=== PATIENT | male | born 1935 | race Caucasian/White ===

== ENCOUNTER 2017-11-20 10:30 | Observation (INO) | payer MEDICARE, OTHER ==
[~2017-11-20 10:30] MED LIST: CEFAZOLIN 1 GM INJ; INDIGOTINDISULFONATE 0.8% 5 ML INJ ZFS; LIDOCAINE 2% (SDV) 5 ML INJ; ROCURONIUM 50 MG INJ
[2017-11-20] MEDS ORDERED: CEFTRIAXONE 1 GM/NS 50 ML IVPB (11:00)
[2017-11-20] MEDS ORDERED: PROPOFOL 20 ML (12:27)
[2017-11-20] MEDS ORDERED: FENTAnyl 50 MCG/ML VIAL ×2 (12:32→15:11)
[2017-11-20] MEDS ORDERED: FUROSEMIDE 20 MG INJ (14:08)
[2017-11-20] MEDS: IOHEXOL 300MG/ML 30 ML BTL (14:50)
[2017-11-20] MEDS ORDERED: SUGAMMADEX SODIUM 200 MG/2 ML VIAL IV (15:41)
[2017-11-20] MEDS ORDERED: KETOROLAC 30 MG INJ IV (16:00)
[2017-11-20] MEDS ORDERED: MEPERIDINE 25 MG INJ IV (16:00)
[2017-11-20] MEDS ORDERED: FENTAnyl 50 MCG/ML VIAL IV ×3 (16:00)
[2017-11-20] MEDS ORDERED: EPHEDrine SULFATE 50 MG/5 ML SYG IV (16:00)
[2017-11-20] MEDS ORDERED: ONDANSETRON 4 MG INJ IV ×3 (16:00→22:30)
[2017-11-20] MEDS ORDERED: MIDAZOLAM 1 MG/ML 2 ML INJ IV (16:00)
[2017-11-20] MEDS ORDERED: DIPHENHYDRAMINE 50 MG INJ IV (16:00)
[2017-11-20] MEDS ORDERED: METOCLOPRAMIDE 10 MG INJ IV (16:00)
[2017-11-20] MEDS ORDERED: HYDROmorphONE 1 MG/5 ML IV SYRINGE IV ×3 (16:00)
[2017-11-20] MEDS ORDERED: ALBUTEROL 0.083% (NEB) 2.5 MG/3 ML AMP HHN (16:00)
[2017-11-20] MEDS ORDERED: LABETALOL HCL 20MG INJ IV (16:00)
[2017-11-20] MEDS: hydrALAzine 20 MG INJ IV ×2 (16:15→16:36)
[2017-11-20] MEDS: DEXTROSE 5%-0.45% NACL 1,000 ML IV (18:54)
[2017-11-20] MEDS ORDERED: GLUCOSE GEL 15 GRAM TUBE PO ×2 (21:00)
[2017-11-20] MEDS ORDERED: GLUCAGON 1 MG INJ IM (21:00)
[2017-11-20] MEDS ORDERED: GLUCOSE GEL 15 GRAM TUBE BUCCAL (21:00)
[2017-11-20] MEDS ORDERED: DEXTROSE 50% 50 ML SYRINGE IV ×2 (21:00)
[2017-11-20] MEDS: ATORVASTATIN 20 MG TAB PO (21:54)
[2017-11-20] MEDS: INSULIN GLARGINE [LANtus] 3 ML PEN SC (21:59)
[2017-11-20] MEDS: INSULIN ASPART [NOVOLOG] 3 ML PEN SC (22:00)
[2017-11-21] MEDS: ACCU-CHEK XX (02:06)
[2017-11-21] MEDS: PANTOPRAZOLE (EC) 40 MG TAB PO (05:20)
[2017-11-21 06:10] LABS: ADD MAN DIFF? NO
[2017-11-21 06:17] LABS: WHITE BLOOD COUNT 10.2 10^3/ul (4.8-10.8)
[2017-11-21 06:17] LABS: BASOPHILS % 0.3 % (0.0-2.0); EOSINOPHILS % 0.4 % (0.0-7.0); HEMATOCRIT 37.5 % (42.0-52.0); HEMOGLOBIN 12.4 g/dl (14.0-18.0); LYMPHOCYTES % 9.4 % (15.0-51.0); MEAN CORPUSCULAR HEMOGLOBIN 31.4 pg (29.0-33.0); MEAN CORPUSCULAR HGB CONC 33.1 g/dl (32.0-37.0); MEAN CORPUSCULAR VOLUME 94.9 fl (82.0-101.0); MEAN PLATELET VOLUME 10.5 fl (7.4-10.4); MONOCYTE # 0.4 10^3/ul (0.3-0.9); MONOCYTES % 3.8 % (0.0-11.0); NEUTROPHIL # 8.7 10^3/ul (1.6-7.5); NEUTROPHILS % 85.6 % (39.0-77.0); PLATELET COUNT 157 10^3/UL (140-415); RED BLOOD COUNT 3.95 10^6/ul (4.70-6.10); RED CELL DISTRIBUTION WIDTH 13.8 % (11.5-14.5)
[2017-11-21] MEDS: INSULIN ASPART [NOVOLOG] 3 ML PEN SC ×6 (08:14→17:30)
[2017-11-21 08:59] LABS: HEMOGLOBIN A1C 6.8 % (0-5.9)
[2017-11-21] MEDS: VALSARTAN 80 MG TAB PO (10:27)
[2017-11-21] MEDS: AMLODIPINE 5 MG TAB PO (10:27)
[2017-11-21 16:26] LABS: ANION GAP 11 (8-16); BLOOD UREA NITROGEN 24 mg/dl (7-20); CALCIUM 8.2 mg/dl (8.4-10.2); CARBON DIOXIDE 23 mmol/L (21-31); CHLORIDE 107 mmol/L (97-110); CREATININE 1.58 mg/dl (0.61-1.24); GLUCOSE 193 mg/dl (70-220); POTASSIUM 4.8 mmol/L (3.5-5.1); SODIUM 136 mmol/L (135-144)
== END 2017-11-21 19:00 | disposition home or self-care (01) ==
LOC: SDS 10:30 → REC 15:57 → MS2 17:25
PROVIDERS: Urology
DX: C67.5 Malignant neoplasm of bladder neck (principal); E11.9 Type 2 diabetes mellitus without complications; I10 Essential (primary) hypertension; I73.9 Peripheral vascular disease, unspecified
CPT/HCPCS: 52005; 74420; 80048; 82962; 83036; 85025; 88104; 88309; 99217

== ENCOUNTER 2017-11-26 17:40 | Inpatient (IN) | payer MEDICARE, OTHER ==
[2017-11-26 19:19] LABS: ADD MAN DIFF? NO
[2017-11-26 19:28] LABS: ABNORMAL IP MESSAGE 1; BASOPHILS % 0.2 % (0.0-2.0); EOSINOPHILS # 0.1 10^3/ul (0.0-0.5); HEMATOCRIT 35.4 % (42.0-52.0); HEMOGLOBIN 11.9 g/dl (14.0-18.0); LYMPHOCYTES # 0.6 10^3/ul (0.8-2.9); LYMPHOCYTES % 5.7 % (15.0-51.0); MEAN CORPUSCULAR HEMOGLOBIN 31.5 pg (29.0-33.0); MEAN CORPUSCULAR HGB CONC 33.6 g/dl (32.0-37.0); MEAN CORPUSCULAR VOLUME 93.7 fl (82.0-101.0); MEAN PLATELET VOLUME 10.3 fl (7.4-10.4); MONOCYTE # 0.4 10^3/ul (0.3-0.9); MONOCYTES % 4.1 % (0.0-11.0); NEUTROPHILS % 88.6 % (39.0-77.0); PLATELET COUNT 179 10^3/UL (140-415); POSITIVE DIFF @See below; RED BLOOD COUNT 3.78 10^6/ul (4.70-6.10); RED CELL DISTRIBUTION WIDTH 13.4 % (11.5-14.5)
[2017-11-26 19:28] LABS: WHITE BLOOD COUNT 10.1 10^3/ul (4.8-10.8)
[2017-11-26] MEDS: ACETAMINOPHEN 325 MG TAB PO (19:35)
[2017-11-26] MEDS: IBUPROFEN 800 MG TAB PO (19:35)
[2017-11-26] MEDS: SODIUM CHLORIDE 0.9% 1L BAG IV* (19:36)
[2017-11-26 19:40] LABS: LACTIC ACID 1.7 mmol/L (0.5-2.0)
[2017-11-26 19:42] LABS: ALANINE AMINOTRANSFERASE 23 IU/L (13-69); ALBUMIN 3.6 g/dl (3.3-4.9); ALKALINE PHOSPHATASE 63 IU/L (42-121); AMYLASE 80 U/L (11-123); ANION GAP 13 (8-16); ASPARTATE AMINO TRANSFERASE 15 IU/L (15-46); BILIRUBIN,INDIRECT 0.4 mg/dl (0-1.1); BILIRUBIN,TOTAL 0.4 mg/dl (0.2-1.3); BLOOD UREA NITROGEN 19 mg/dl (7-20); CALCIUM 8.6 mg/dl (8.4-10.2); CARBON DIOXIDE 24 mmol/L (21-31); CHLORIDE 104 mmol/L (97-110); GLUCOSE 270 mg/dl (70-220); LIPASE 156 U/L (23-300); POTASSIUM 4.8 mmol/L (3.5-5.1); SODIUM 136 mmol/L (135-144); TOTAL PROTEIN 6.6 g/dl (6.1-8.1)
[2017-11-26 19:54] LABS: INR 1.01; PROTIME 13.4 Sec (11.9-14.9)
[2017-11-26 19:55] LABS: PARTIAL THROMBOPLASTIN TIME 33.2 Sec (25.0-35.0)
[2017-11-26 19:57] LABS: ADD UMIC YES; UR ASCORBIC ACID NEGATIVE (NEGATIVE); UR BACTERIA FEW /HPF (NONE SEEN); UR BILIRUBIN (Dip) NEGATIVE (NEGATIVE); UR BLOOD (Dip) 3+ mg/dL (NEGATIVE); UR CLARITY CLOUDY (CLEAR); UR COLOR YELLOW (YELLOW); UR GLUCOSE (Dip) 1+ mg/dL (NEGATIVE); UR KETONES (Dip) NEGATIVE (NEGATIVE); UR LEUKOCYTE ESTERASE (Dip) 3+ Leu/ul (NEGATIVE); UR NITRITE (Dip) NEGATIVE (NEGATIVE); UR RBC > 182 /HPF (0-5); UR SQUAMOUS EPITHELIAL CELL FEW /HPF (FEW); UR TOTAL PROTEIN (Dip) 2+ mg/dl (NEGATIVE); UR UROBILINOGEN (Dip) NEGATIVE (NEGATIVE); UR WBC > 182 /HPF (0-5)
[2017-11-26 20:10] LABS: TROPONIN-I 0.034 ng/ml (0.000-0.120)
[2017-11-26] MEDS: CEFEPIME 2GM/50 ML (PMX) 50 ML IVPB (20:28)
[2017-11-26] MEDS ORDERED: ACETAMINOPHEN 325 MG TAB PO ×2 (20:30→22:00)
[2017-11-26] MEDS ORDERED: ONDANSETRON 4 MG INJ IV ×2 (20:30→22:00)
[2017-11-26] MEDS: VANCOMYCIN 1 GM (PMX) 250 ML IVPB (21:07)
[2017-11-26] MEDS ORDERED: NACL 0.9% 3 ML SYG IV (22:00)
[2017-11-26] MEDS ORDERED: morphine 2 MG INJ IV (22:00)
[2017-11-26] MEDS ORDERED: VANCOMYCIN IV PER PHARMACY XX (22:00)
[2017-11-26] MEDS ORDERED: GLUCOSE GEL 15 GRAM TUBE BUCCAL (23:30)
[2017-11-26] MEDS ORDERED: GLUCOSE GEL 15 GRAM TUBE PO ×2 (23:30)
[2017-11-26] MEDS ORDERED: DEXTROSE 50% 50 ML SYRINGE IV ×2 (23:30)
[2017-11-26] MEDS ORDERED: GLUCAGON 1 MG INJ IM (23:30)
[2017-11-26 23:51] LABS: LACTIC ACID 1.9 mmol/L (0.5-2.0)
[2017-11-26] MEDS: SOD CHLORIDE 0.9% 1,000 ML IV (23:52)
[2017-11-26] MEDS: PIPER-TAZO 2.25 GM (PMX) 50 ML IVPB (23:52)
[2017-11-27] MEDS: SOD CHLORIDE 0.9% 500 ML IV (00:41)
[2017-11-27] MEDS: SOD CHLORIDE 0.9% 1,000 ML IV (01:43)
[2017-11-27] MEDS: ACCU-CHEK XX (02:17)
[2017-11-27] MEDS: PIPER-TAZO 2.25 GM (PMX) 50 ML IVPB ×3 (05:42→21:50)
[2017-11-27] MEDS: CLINDAMYCIN 600 MG/D5W (PMX) 50 ML IVPB ×4 (05:42→23:53)
[2017-11-27] MEDS: PANTOPRAZOLE (EC) 40 MG TAB PO (05:42)
[2017-11-27] MEDS ORDERED: ONDANSETRON 4 MG INJ IV (07:00)
[2017-11-27] MEDS ORDERED: HYDROCODONE/APAP (5/325) TAB PO (07:00)
[2017-11-27 07:19] LABS: ADD MAN DIFF? NO
[2017-11-27 07:29] LABS: WHITE BLOOD COUNT 10.4 10^3/ul (4.8-10.8)
[2017-11-27 07:29] LABS: BASOPHILS % 0.4 % (0.0-2.0); EOSINOPHILS # 0.2 10^3/ul (0.0-0.5); EOSINOPHILS % 2.2 % (0.0-7.0); HEMOGLOBIN 11.7 g/dl (14.0-18.0); LYMPHOCYTES % 9.8 % (15.0-51.0); MEAN CORPUSCULAR HGB CONC 32.5 g/dl (32.0-37.0); MEAN CORPUSCULAR VOLUME 95.5 fl (82.0-101.0); MEAN PLATELET VOLUME 10.3 fl (7.4-10.4); MONOCYTE # 0.6 10^3/ul (0.3-0.9); MONOCYTES % 5.4 % (0.0-11.0); NEUTROPHIL # 8.5 10^3/ul (1.6-7.5); NEUTROPHILS % 81.9 % (39.0-77.0); PLATELET COUNT 163 10^3/UL (140-415); RED BLOOD COUNT 3.77 10^6/ul (4.70-6.10); RED CELL DISTRIBUTION WIDTH 13.7 % (11.5-14.5)
[2017-11-27] MEDS ORDERED: INSULIN ASPART [NOVOLOG] 3 ML PEN SC (07:55)
[2017-11-27] MEDS: INSULIN ASPART [NOVOLOG] 3 ML PEN SC ×4 (07:55→20:43)
[2017-11-27 07:58] LABS: ALANINE AMINOTRANSFERASE 27 IU/L (13-69); ALBUMIN 3.3 g/dl (3.3-4.9); ALBUMIN/GLOBULIN RATIO 1.17; ALKALINE PHOSPHATASE 48 IU/L (42-121); ANION GAP 15 (8-16); ASPARTATE AMINO TRANSFERASE 15 IU/L (15-46); BILIRUBIN,INDIRECT 0.8 mg/dl (0-1.1); BILIRUBIN,TOTAL 0.8 mg/dl (0.2-1.3); BLOOD UREA NITROGEN 18 mg/dl (7-20); CALCIUM 8.4 mg/dl (8.4-10.2); CARBON DIOXIDE 24 mmol/L (21-31); CHLORIDE 110 mmol/L (97-110); CREATININE 1.53 mg/dl (0.61-1.24); GLUCOSE 171 mg/dl (70-220); MAGNESIUM 2.1 mg/dl (1.7-2.5); POTASSIUM 4.5 mmol/L (3.5-5.1); SODIUM 144 mmol/L (135-144); TOTAL PROTEIN 6.1 g/dl (6.1-8.1)
[2017-11-27 08:14] LABS: HEMOGLOBIN A1C 6.9 % (0-5.9)
[2017-11-27] MEDS ORDERED: GLUCAGON 1 MG INJ IM (08:30)
[2017-11-27] MEDS ORDERED: GLUCOSE GEL 15 GRAM TUBE BUCCAL (08:30)
[2017-11-27] MEDS ORDERED: DEXTROSE 50% 50 ML SYRINGE IV ×2 (08:30)
[2017-11-27] MEDS ORDERED: GLUCOSE GEL 15 GRAM TUBE PO ×2 (08:30)
[2017-11-27] MEDS: FISH OIL 1,000 MG CAP PO ×2 (08:42→20:40)
[2017-11-27] MEDS: ASPIRIN (EC) 81 MG TAB PO (08:42)
[2017-11-27] MEDS: MULTIVITAMINS/MINERALS TAB PO (08:43)
[2017-11-27] MEDS: AMLODIPINE 5 MG TAB PO (08:43)
[2017-11-27] MEDS: CHOLECALCIFEROL 2,000 UNIT CAP PO (08:43)
[2017-11-27] MEDS ORDERED: UBIDECARENONE 100 MG PO (09:00)
[2017-11-27] MEDS: ATORVASTATIN 20 MG TAB PO (20:40)
[2017-11-27] MEDS: TAMSULOSIN (SR) 0.4 MG CAP PO (20:40)
[2017-11-27] MEDS ORDERED: VANCOMYCIN 1 GM 250 ML IVPB (21:00)
[2017-11-27] MEDS ORDERED: morphine LIQ (10 MG/5 ML) CUP PO (23:00)
[2017-11-28] MEDS: ACCU-CHEK XX (02:00)
[2017-11-28] MEDS: PIPER-TAZO 2.25 GM (PMX) 50 ML IVPB ×3 (05:34→22:37)
[2017-11-28] MEDS: CLINDAMYCIN 600 MG/D5W (PMX) 50 ML IVPB ×3 (05:34→17:41)
[2017-11-28] MEDS: PANTOPRAZOLE (EC) 40 MG TAB PO (05:34)
[2017-11-28 07:29] LABS: ANION GAP 16 (8-16); BLOOD UREA NITROGEN 16 mg/dl (7-20); CALCIUM 8.5 mg/dl (8.4-10.2); CARBON DIOXIDE 23 mmol/L (21-31); CHLORIDE 107 mmol/L (97-110); CREATININE 1.48 mg/dl (0.61-1.24); GLUCOSE 181 mg/dl (70-220); POTASSIUM 4.6 mmol/L (3.5-5.1); SODIUM 141 mmol/L (135-144)
[2017-11-28] MEDS: SOD CHLORIDE 0.9% 1,000 ML IV (07:46)
[2017-11-28] MEDS: CHOLECALCIFEROL 2,000 UNIT CAP PO (08:28)
[2017-11-28] MEDS: FISH OIL 1,000 MG CAP PO ×2 (08:28→21:10)
[2017-11-28] MEDS: MULTIVITAMINS/MINERALS TAB PO (08:28)
[2017-11-28] MEDS: AMLODIPINE 5 MG TAB PO (08:28)
[2017-11-28] MEDS: ASPIRIN (EC) 81 MG TAB PO (08:28)
[2017-11-28] MEDS: INSULIN ASPART [NOVOLOG] 3 ML PEN SC ×4 (08:34→21:13)
[2017-11-28 09:50] LABS: THYROID STIMULATING HORMONE 0.765 MIU/L (0.465-4.680)
[2017-11-28 19:03] LABS: TROPONIN-I 0.019 ng/ml (0.000-0.120)
[2017-11-28] MEDS ORDERED: METOPROLOL 25 MG TAB PO (21:00)
[2017-11-28] MEDS: METOPROLOL 25 MG TAB PO (21:10)
[2017-11-28] MEDS: ATORVASTATIN 20 MG TAB PO (21:10)
[2017-11-28] MEDS: TAMSULOSIN (SR) 0.4 MG CAP PO (21:10)
[2017-11-29] MEDS: CLINDAMYCIN 600 MG/D5W (PMX) 50 ML IVPB ×5 (00:31→22:30)
[2017-11-29 01:40] LABS: CREATINE KINASE 22 IU/L (23-200)
[2017-11-29 01:51] LABS: CK INDEX 1.2; CK-MB 0.26 ng/ml (0.0-2.4)
[2017-11-29] MEDS: ACCU-CHEK XX (02:00)
[2017-11-29] MEDS: PIPER-TAZO 2.25 GM (PMX) 50 ML IVPB ×3 (06:01→21:52)
[2017-11-29] MEDS: PANTOPRAZOLE (EC) 40 MG TAB PO (06:01)
[2017-11-29 06:41] LABS: ADD MAN DIFF? NO
[2017-11-29 06:45] LABS: BASOPHILS % 0.4 % (0.0-2.0); EOSINOPHILS # 0.3 10^3/ul (0.0-0.5); EOSINOPHILS % 3.1 % (0.0-7.0); HEMATOCRIT 33.7 % (42.0-52.0); LYMPHOCYTES # 1.1 10^3/ul (0.8-2.9); LYMPHOCYTES % 11.1 % (15.0-51.0); MEAN CORPUSCULAR HEMOGLOBIN 30.4 pg (29.0-33.0); MEAN CORPUSCULAR HGB CONC 32.6 g/dl (32.0-37.0); MEAN CORPUSCULAR VOLUME 93.1 fl (82.0-101.0); MEAN PLATELET VOLUME 10.9 fl (7.4-10.4); MONOCYTE # 0.5 10^3/ul (0.3-0.9); MONOCYTES % 4.9 % (0.0-11.0); NEUTROPHIL # 7.6 10^3/ul (1.6-7.5); NEUTROPHILS % 79.5 % (39.0-77.0); PLATELET COUNT 206 10^3/UL (140-415); RED BLOOD COUNT 3.62 10^6/ul (4.70-6.10); RED CELL DISTRIBUTION WIDTH 13.5 % (11.5-14.5)
[2017-11-29 06:45] LABS: WHITE BLOOD COUNT 9.6 10^3/ul (4.8-10.8)
[2017-11-29 07:35] LABS: ANION GAP 10 (8-16); BLOOD UREA NITROGEN 13 mg/dl (7-20); CALCIUM 8.6 mg/dl (8.4-10.2); CARBON DIOXIDE 25 mmol/L (21-31); CHLORIDE 110 mmol/L (97-110); CREATININE 1.55 mg/dl (0.61-1.24); GLUCOSE 160 mg/dl (70-220); PHOSPHORUS 3.9 mg/dl (2.5-4.9); POTASSIUM 4.4 mmol/L (3.5-5.1); SODIUM 141 mmol/L (135-144)
[2017-11-29] MEDS: FISH OIL 1,000 MG CAP PO ×2 (08:12→21:37)
[2017-11-29] MEDS: MULTIVITAMINS/MINERALS TAB PO (08:13)
[2017-11-29] MEDS: SOD CHLORIDE 0.9% 1,000 ML IV (08:13)
[2017-11-29] MEDS: ASPIRIN (EC) 81 MG TAB PO (08:13)
[2017-11-29] MEDS: AMLODIPINE 5 MG TAB PO (08:13)
[2017-11-29] MEDS: METOPROLOL 25 MG TAB PO ×2 (08:13→21:37)
[2017-11-29] MEDS: CHOLECALCIFEROL 2,000 UNIT CAP PO (08:13)
[2017-11-29] MEDS: INSULIN ASPART [NOVOLOG] 3 ML PEN SC ×4 (08:20→21:48)
[2017-11-29 08:31] LABS: CK-MB 0.24 ng/ml (0.0-2.4); TROPONIN-I 0.017 ng/ml (0.000-0.120)
[2017-11-29 08:55] LABS: CREATINE KINASE < 20 IU/L (23-200)
[2017-11-29] MEDS: POTASSIUM CHLORIDE (SR) 20 MEQ TAB PO (15:27)
[2017-11-29] MEDS: MAGNESIUM SULFATE 1 GM/D5W 100 ML IVPB (15:27)
[2017-11-29] MEDS: TAMSULOSIN (SR) 0.4 MG CAP PO (21:37)
[2017-11-29] MEDS: ATORVASTATIN 20 MG TAB PO (21:37)
[2017-11-30] MEDS: ACCU-CHEK XX (02:00)
[2017-11-30 06:29] LABS: WHITE BLOOD COUNT 7.5 10^3/ul (4.8-10.8)
[2017-11-30 06:29] LABS: ADD MAN DIFF? NO; BASOPHIL # 0.1 10^3/ul (0.0-0.1); BASOPHILS % 0.7 % (0.0-2.0); EOSINOPHILS # 0.4 10^3/ul (0.0-0.5); EOSINOPHILS % 4.8 % (0.0-7.0); HEMATOCRIT 33.8 % (42.0-52.0); LYMPHOCYTES # 0.9 10^3/ul (0.8-2.9); LYMPHOCYTES % 11.8 % (15.0-51.0); MEAN CORPUSCULAR HEMOGLOBIN 31.1 pg (29.0-33.0); MEAN CORPUSCULAR HGB CONC 32.5 g/dl (32.0-37.0); MEAN CORPUSCULAR VOLUME 95.5 fl (82.0-101.0); MEAN PLATELET VOLUME 10.8 fl (7.4-10.4); MONOCYTE # 0.4 10^3/ul (0.3-0.9); MONOCYTES % 5.4 % (0.0-11.0); NEUTROPHIL # 5.7 10^3/ul (1.6-7.5); NEUTROPHILS % 76.8 % (39.0-77.0); PLATELET COUNT 229 10^3/UL (140-415); RED BLOOD COUNT 3.54 10^6/ul (4.70-6.10); RED CELL DISTRIBUTION WIDTH 13.5 % (11.5-14.5)
[2017-11-30] MEDS: SOD CHLORIDE 0.9% 1,000 ML IV (06:32)
[2017-11-30] MEDS: PANTOPRAZOLE (EC) 40 MG TAB PO (06:32)
[2017-11-30] MEDS: PIPER-TAZO 2.25 GM (PMX) 50 ML IVPB ×2 (06:32→14:13)
[2017-11-30] MEDS: CLINDAMYCIN 600 MG/D5W (PMX) 50 ML IVPB ×2 (06:32→12:06)
[2017-11-30 06:47] LABS: ALANINE AMINOTRANSFERASE 30 IU/L (13-69); ALBUMIN 3.3 g/dl (3.3-4.9); ALBUMIN/GLOBULIN RATIO 1.06; ALKALINE PHOSPHATASE 43 IU/L (42-121); ANION GAP 15 (8-16); ASPARTATE AMINO TRANSFERASE 19 IU/L (15-46); BILIRUBIN,INDIRECT 0.4 mg/dl (0-1.1); BILIRUBIN,TOTAL 0.4 mg/dl (0.2-1.3); BLOOD UREA NITROGEN 13 mg/dl (7-20); CALCIUM 8.5 mg/dl (8.4-10.2); CARBON DIOXIDE 24 mmol/L (21-31); CHLORIDE 108 mmol/L (97-110); CREATININE 1.59 mg/dl (0.61-1.24); GLUCOSE 162 mg/dl (70-220); SODIUM 142 mmol/L (135-144); TOTAL PROTEIN 6.4 g/dl (6.1-8.1)
[2017-11-30 06:54] LABS: INR 1.06; PROTIME 13.9 Sec (11.9-14.9); PT RATIO 1.1
[2017-11-30 06:55] LABS: PARTIAL THROMBOPLASTIN TIME 34.7 Sec (25.0-35.0)
[2017-11-30] MEDS: INSULIN ASPART [NOVOLOG] 3 ML PEN SC ×2 (07:52→12:17)
[2017-11-30] MEDS: ASPIRIN (EC) 81 MG TAB PO (08:58)
[2017-11-30] MEDS: FISH OIL 1,000 MG CAP PO (08:58)
[2017-11-30] MEDS: CHOLECALCIFEROL 2,000 UNIT CAP PO (08:59)
[2017-11-30] MEDS: AMLODIPINE 5 MG TAB PO (08:59)
[2017-11-30] MEDS: MULTIVITAMINS/MINERALS TAB PO (08:59)
[2017-11-30] MEDS: METOPROLOL 25 MG TAB PO (08:59)
== END 2017-11-30 15:10 | disposition home or self-care (01) | DRG 862 ==
LOC: TEL 20:15 → E/R 17:40
DX: T81.4XXA Infection following a procedure, initial encounter (principal); A41.9 Sepsis, unspecified organism; N39.0 Urinary tract infection, site not specified; I47.2 Ventricular tachycardia; E11.22 Type 2 diabetes mellitus with diabetic chronic kidney disease; N28.1 Cyst of kidney, acquired; R31.9 Hematuria, unspecified; I73.9 Peripheral vascular disease, unspecified; E78.5 Hyperlipidemia, unspecified; R33.9 Retention of urine, unspecified; I12.9 Hypertensive chronic kidney disease with stage 1 through stage 4 chronic kidney disease, or unspecified chronic kidney disease; N18.9 Chronic kidney disease, unspecified; N20.0 Calculus of kidney; Y84.8 Other medical procedures as the cause of abnormal reaction of the patient, or of later complication, without mention of misadventure at the time of the procedure; Y92.89 Other specified places as the place of occurrence of the external cause; Z79.4 Long term (current) use of insulin; Z79.82 Long term (current) use of aspirin; Z87.442 Personal history of urinary calculi; Z87.891 Personal history of nicotine dependence; Z85.118 Personal history of other malignant neoplasm of bronchus and lung
CPT/HCPCS: 36415; 71045; 74176; 80048; 80053; 81001; 82150; 82550; 82553; 82962; 83036; 83605; 83690; 83735; 84100; 84443; 84484; 85025; 85610; 85730; 87040; 87086; 93005; 93306; 97162; 97165; 99285-25